=== PATIENT | female | born 1960 | race Caucasian/White ===

== ENCOUNTER 2017-09-01 21:47 | Emergency (ER) | payer OTHER ==
[~2017-09-01] VITALS: Ht 154.9 cm; Wt 88.0 kg
[2017-09-01] MEDS ORDERED: LISINOPRIL10 MG PO (21:58)
[2017-09-01] MEDS ORDERED: CLONAZEPAM1 MG PO (21:59)
[2017-09-01] MEDS ORDERED: CLONAZEPAM2 MG PO (21:59)
[2017-09-01] MEDS ORDERED: ABILIFY5 MG PO (21:59)
[2017-09-01] MEDS ORDERED: PROZAC20 MG PO (22:03)
[2017-09-01] MEDS ORDERED: SIMVASTATIN10 MG PO (22:03)
[2017-09-01] MEDS ORDERED: TEMAZEPAM30 MG PO (22:03)
[2017-09-02] MEDS ORDERED: LEVSIN/SL0.125 MG SL (02:40)
[2017-09-02] MEDS ORDERED: PEPCID40 MG PO (02:40)
== END 2017-09-02 02:35 | disposition home or self-care (01) ==
LOC: ER 21:47
DX: K80.20 Calculus of gallbladder without cholecystitis without obstruction (principal)

== ENCOUNTER 2019-08-28 13:31 | Emergency (ER) | payer OTHER ==
[~2019-08-28] VITALS: Ht 154.9 cm; Wt 103.0 kg
[~2019-08-28 13:31] MED LIST: ABILIFY5 MG PO; CLONAZEPAM1 MG PO; CLONAZEPAM2 MG PO; LEVSIN/SL0.125 MG SL; LISINOPRIL10 MG PO; PEPCID40 MG PO; PROZAC20 MG PO; SIMVASTATIN10 MG PO; TEMAZEPAM30 MG PO
[2019-08-28] MEDS ORDERED: ABILIFY5 MG (13:50)
[2019-08-28] MEDS ORDERED: CLONAZEPAM0.5 MG (13:50)
[2019-08-28] MEDS ORDERED: RESTORIL30 M1 (13:51)
[2019-08-28] MEDS ORDERED: DICLOFENAC SODI75 MG PO (15:24)
== END 2019-08-28 15:53 | disposition home or self-care (01) ==
LOC: ER 13:31
DX: S80.02XA Contusion of left knee, initial encounter (principal); M12.562 Traumatic arthropathy, left knee; W18.09XA Striking against other object with subsequent fall, initial encounter; Y93.89 Activity, other specified; Y92.89 Other specified places as the place of occurrence of the external cause; Y99.8 Other external cause status

== ENCOUNTER 2020-01-24 19:37 | Emergency (ER) | payer OTHER ==
[~2020-01-24] VITALS: Ht 152.4 cm; Wt 103.4 kg
[~2020-01-24 19:37] MED LIST changes: +ABILIFY5 MG; +CLONAZEPAM0.5 MG; +DICLOFENAC SODI75 MG PO; +RESTORIL30 M1
== END 2020-01-24 22:03 | disposition home or self-care (01) ==
LOC: ER 19:37
DX: M54.2 Cervicalgia (principal); M25.512 Pain in left shoulder

== ENCOUNTER 2020-12-01 11:12 | Emergency (ER) | payer OTHER ==
[~2020-12-01] VITALS: Ht 154.9 cm; Wt 95.7 kg
== END 2020-12-02 ==
LOC: ER 11:12
DX: U07.1 COVID-19 (principal); B34.9 Viral infection, unspecified